=== PATIENT | male | born 2000 | race Caucasian/White ===

== ENCOUNTER → 2021-09-11 | Outpatient (CLI) | payer BC ==
--- NOTE | 2021-09-11 13:11 | Diagnostic Imaging Report ---
PROCEDURE: CT abdomen and pelvis without contrast. TECHNIQUE: Multiple contiguous axial images were obtained through the abdomen and pelvis without the use of intravenous contrast. Auto Exposure Controls were utilized during the CT exam to meet ALARA standards for radiation dose reduction. INDICATION: Left flank and left lower quadrant pain. COMPARISON: There are no prior studies available for comparison. FINDINGS: There is mild distortion of the mesenteric fat adjacent to the midportion of the descending colon (image [id number] of 208). This does suggest mild edema/inflammation and most likely there is an element of colitis present. There is no acute abnormality of the abdomen or pelvis noted otherwise. There is no sign of nephrolithiasis and the kidneys do not appear obstructed. There is a tiny 1 mm calcification near the base of the bladder on the left. (Image 171 of 208). However this seems to be extraneous to the ureter. The appendix was visualized and is not abnormally thickened. There is no pelvic mass or free fluid collection noted. The urinary bladder and prostate gland are grossly unremarkable. The liver is enlarged measuring approximately 25 cm in length. The liver is also of lower density than usually seen and this does suggest fatty metamorphosis. There is no focal mass involving the liver and the biliary tree is not dilated. The spleen, pancreas, adrenals, gallbladder, aorta and inferior vena cava are unremarkable for an acute abnormality. The stomach is partially filled with fluid and difficult to assess. The lung bases are clear. The bone windows are unremarkable for a fracture or for a destructive lesion. IMPRESSION: 1. The slight distortion of the pericolic fat about the midportion of the descending colon does suggest edema/inflammation. Most likely there is an element of mild colitis present. 2. There is no acute abnormality of the abdomen or pelvis noted otherwise. 3. 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 4. These results were discussed with Dr. Essence Alex at the time of this dictation. Dictated by: Dictated on workstation # [id number]
== END ==
LOC: RAD 12:00
PROVIDERS: ATTEND Internal Medicine
DX: R10.814 Left lower quadrant abdominal tenderness (principal); K76.0 Fatty (change of) liver, not elsewhere classified
CPT/HCPCS: 74176